=== PATIENT | female | born 1955 | race Hispanic/Latino ===

== ENCOUNTER 2019-11-06 07:37 | Day surgery (SDC) | payer MEDICARE, OTHER ==
[~2019-11-06] VITALS: Ht 157.5 cm; Wt 89.4 kg
[~2019-11-06 07:37] MED LIST: ACET1TAB12 PO; APRE30TA2 PO; ASPI-1181 PO; CHOL200013 PO; DIPH50LI PO; DULO30CA52 PO; FOLI1TAB15 PO; GABA-531 PO; METF-444 PO; MONT10TA26 PO; OMEP40CA13 PO; SIMV-43 PO; SODIUM CHLORIDE 0.9% 1000ML 1,000 ML IV ONE; SUCR1ORA15 PO; ZOLP5TAB8 PO
[2019-11-06 08:30] VITALS: BP 134/56
[2019-11-06] MEDS ORDERED: FE F1CAP8 PO (08:46)
[2019-11-06] MEDS ORDERED: PROPOFOL 10 MG/ML 20ML VIAL IV ONE ×3 (10:16→10:24)
[2019-11-06 10:44] VITALS: BP 96/53
[2019-11-06 10:49] VITALS: BP 100/51
[2019-11-06 10:54] VITALS: BP 110/60
[2019-11-06 10:59] VITALS: BP 137/70
== END 2019-11-06 11:25 | disposition home or self-care (01) ==
LOC: ENDO 07:37 → DAH 07:37 → ENDO 11:25
PROVIDERS: ATTEND Internal Medicine Gastroenterology
DX: D50.9 Iron deficiency anemia, unspecified (principal); K63.5 Polyp of colon; K29.51 Unspecified chronic gastritis with bleeding; K55.21 Angiodysplasia of colon with hemorrhage; K22.8 Other specified diseases of esophagus; K57.30 Diverticulosis of large intestine without perforation or abscess without bleeding; K21.9 Gastro-esophageal reflux disease without esophagitis; M19.90 Unspecified osteoarthritis, unspecified site; I44.7 Left bundle-branch block, unspecified; Z79.84 Long term (current) use of oral hypoglycemic drugs; Z79.899 Other long term (current) drug therapy; E78.5 Hyperlipidemia, unspecified; G47.00 Insomnia, unspecified; Z90.49 Acquired absence of other specified parts of digestive tract; Z98.890 Other specified postprocedural states; K55.20 Angiodysplasia of colon without hemorrhage; Z86.010 Personal history of colon polyps; Z98.84 Bariatric surgery status
CPT/HCPCS: 43239; 45382; 45385; 82948 ×2; 88305; A4215; A4221; A4222; A4223; A4606; A4620; A4663; J2704 ×3; J7030; 45380

== ENCOUNTER → 2019-11-28 | Outpatient (CLI) | payer OTHER ==
[~2019-11-28] MED LIST changes: -ACET1TAB12 PO; -CHOL200013 PO; +FE F1CAP8 PO; -SODIUM CHLORIDE 0.9% 1000ML 1,000 ML IV ONE
== END | disposition home or self-care (01) ==
LOC: RAH 13:06 → EDSTATUS 13:30
PROVIDERS: ATTEND Internal Medicine Cardiovascular Disease
DX: Z13.6 Encounter for screening for cardiovascular disorders (principal)
CPT/HCPCS: 75571